=== PATIENT | female | born 2000 | race Hispanic/Latino ===

== ENCOUNTER 2023-08-21 22:06 | Emergency (ER) | payer OTHER ==
[2023-08-21 22:54] LABS: #Monocytes 0.8 thou/uL (0.11-0.59); #Neutrophils 8.4 thou/uL (1.40-6.50); %Basophils 0.4 % (0.0-1.0); %Eosinophils 0.4 % (0.0-10.0); %Lymphocytes 14.9 % (21.0-51.0); %Monocytes 7.6 % (0.0-10.0); %Neutrophils 76.5 % (42.0-75.0); Hematocrit 40.5 % (36.0-47.0); Hemoglobin 13.3 g/dL (12.0-16.0); Mean Corpuscular HGB CONC 32.8 g/dL (32.0-36.0); Mean Corpuscular Hemoglobin 30.3 pg (27.0-31.0); Mean Corpuscular Volume 92.3 fl (78.0-98.0); Mean Platelet Volume 11.3 fL (7.4-10.4); Platelet Count 233 10x3/uL (130-400); RBC Distribution Width 13.9 % (11.5-14.5); Red Blood Cell (RBC) Count 4.39 mill/uL (4.20-5.40); White Blood Cell (WBC) Count 10.9 10x3/uL (4.8-10.8)
[2023-08-21] MEDS ORDERED: Ketorolac Tromethamine 30 MG (1 mL) VIAL ONE (22:58)
[2023-08-21] MEDS ORDERED: Cyclobenzaprine 10 MG TAB ONE (22:58)
[2023-08-21 23:16] LABS: ALT (SGPT) 13 U/L (8-55); AST (SGOT) 22 U/L (5-34); Albumin 5.2 g/dL (3.5-5.0); Alkaline Phosphatase 54 U/L (40-110); Anion Gap 13 mmol/L (10-20); BUN (Urea Nitrogen) 10 mg/dL (7.0-18.7); Bilirubin, Total 0.4 mg/dL (0.2-1.2); Calc. Creatinine Clearance 0 mL/min (70-130); Carbon Dioxide 25 mmol/L (22-29); Chloride 107 mmol/L (98-107); Estimated GFR 99; Globulin 3.3 g/dL (2.4-3.5); Glucose 95 mg/dL (70-105); Potassium 3.5 mmol/L (3.5-5.1); Protein, Total 8.5 g/dL (6.0-8.3); Sodium 141 mmol/L (136-145)
== END 2023-08-21 23:10 | disposition home or self-care (01) ==
LOC: ERS 22:06
DX: S13.4XXA Sprain of ligaments of cervical spine, initial encounter (principal); S00.91XA Abrasion of unspecified part of head, initial encounter; V43.52XA Car driver injured in collision with other type car in traffic accident, initial encounter
CPT/HCPCS: 36415; 70450; 71045; 72125; 80053; 85025; 96374; J1885